=== PATIENT | female | born 1965 | race Hispanic/Latino ===

== ENCOUNTER → 2023-12-05 | Outpatient (CLI) | payer BC ==
[~2023-12-05] MED LIST: ASPI-1005 PO; ASPI-1197 PO; HYDR-4060 PO; MACR100 PO; METF-444 PO; OMEP20CA12 PO; VITAMIN D PO
== END | disposition home or self-care (01) ==
LOC: LAB 17:15
PROVIDERS: ATTEND Nurse Practitioner
DX: M25.462 Effusion, left knee (principal)
CPT/HCPCS: 87070; 87076; 87205